=== PATIENT | male | born 1935 | race African-American/Black ===

== ENCOUNTER 2019-06-06 11:07 | Emergency (ER) | payer OTHER ==
[~2019-06-06] VITALS: Ht 170.2 cm; Wt 77.0 kg
[~2019-06-06 11:07] MED LIST: AMLO10TA4 PO; DONE10TA11 PO; FINA1TAB18 PO; MEGE40TA27 GT; TAMS-11 PO
[2019-06-06 14:21] LABS: BASOPHILS % 0.9 % (0.0-2.0); EOSINOPHILS % 6.3 % (0.0-5.0); HEMATOCRIT. 34.5 % (42.0-52.0); HEMOGLOBIN. 11.8 g/dL (14.0-18.0); LYMPHOCYTES % 13.5 % (20.0-50.0); MEAN CORPUSCULAR HEMOGLOBIN 30.3 pg (28.0-32.0); MEAN CORPUSCULAR VOLUME 88.1 fL (80.0-94.0); MONOCYTES % 10.2 % (2.0-8.0); NEUTROPHILS % 69.1 % (40.0-76.0); PLATELET 281 x1000/uL (130-400); RED BLOOD CELL COUNT 3.91 mill/uL (4.7-6.1); RED CELL DISTRIBUTION WIDTH 13.6 % (11.6-14.6)
[2019-06-06 14:26] LABS: CHLORIDE 106 mEq/L (98-107)
[2019-06-06 14:30] LABS: ETHANOL BLOOD < 10 mg/dL
[2019-06-06 16:29] LABS: CLARITY URINE CLEAR (CLEAR); COLOR URINE YELLOW (YELLOW); KETONES URINE NEGATIVE (NEGATIVE); LEUKOCYTE ESTERASE URINE NEGATIVE (NEGATIVE); NITRITE URINE NEGATIVE (NEGATIVE); OCCULT BLOOD URINE TRACE (NEGATIVE); PROTEIN URINE NEGATIVE (NEGATIVE); SPECIFIC GRAVITY URINE 1.017 (1.005-1.030); UROBILINOGEN URINE 0.2 E.U./dL (0.2-1.0)
[2019-06-06 16:43] LABS: *AMPHETAMINES SCREEN URINE NEGATIVE (NEGATIVE); *BARBITURATES SCREEN URINE NEGATIVE (NEGATIVE); *BENZODIAZEPINES SCREEN URINE NEGATIVE (NEGATIVE)
[2019-06-06 16:44] LABS: *COCAINE SCREEN URINE NEGATIVE (NEGATIVE); CANNABINOID URINE SCREEN NEGATIVE (NEGATIVE); METHADONE URINE SCREEN NEGATIVE (NEGATIVE); OPIATES URINE SCREEN NEGATIVE (NEGATIVE)
[2019-06-06 16:45] LABS: PHENCYCLIDINE URINE SCREEN NEGATIVE (NEGATIVE)
[2019-06-06 17:00] VITALS: BP 128/66
== END 2019-06-06 18:21 | disposition home or self-care (01) ==
LOC: ER 11:07
DX: G31.9 Degenerative disease of nervous system, unspecified (principal); R90.82 White matter disease, unspecified; I10 Essential (primary) hypertension; F03.90 Unspecified dementia, unspecified severity, without behavioral disturbance, psychotic disturbance, mood disturbance, and anxiety; Z95.0 Presence of cardiac pacemaker; Z79.899 Other long term (current) drug therapy
CPT/HCPCS: 36415; 71045; 80305; 80320; 82140; 82962; 84443; 84484; 93005; 99284; G0480

== ENCOUNTER 2019-08-17 18:55 | Emergency (ER) | payer OTHER ==
[~2019-08-17] VITALS: Ht 165.1 cm; Wt 70.0 kg
[2019-08-17] MEDS ORDERED: SODIUM CHLORIDE 0.9% 1,000 ML IV ONE (19:58)
[2019-08-17 20:17] LABS: EOSINOPHILS % 5.5 % (0.0-5.0); HEMATOCRIT. 35.9 % (42.0-52.0); HEMOGLOBIN. 11.9 g/dL (14.0-18.0); MEAN CORPUSCULAR HEMOGLOBIN 29.9 pg (28.0-32.0); MEAN CORPUSCULAR VOLUME 90.1 fL (80.0-94.0); MEAN PLATELET VOLUME 7.7 fl (7.4-10.4); MONOCYTES % 11.4 % (2.0-8.0); NEUTROPHILS % 65.1 % (40.0-76.0); PLATELET 172 x1000/uL (130-400); RED BLOOD CELL COUNT 3.98 mill/uL (4.7-6.1); RED CELL DISTRIBUTION WIDTH 13.6 % (11.6-14.6)
[2019-08-17 20:22] LABS: CHLORIDE 105 mEq/L (98-107)
[2019-08-17 20:26] LABS: INR 1.1; PARTIAL THROMBOPLASTIN TIME 31.4 sec (23.4-31.0); PROTHROMBIN TIME 10.9 sec (9.6-11.0)
[2019-08-17] MEDS ORDERED: ASPIRIN 325MG EC TABLET PO ONE (21:15)
[2019-08-17 22:00] LABS: CLARITY URINE CLEAR (CLEAR); COLOR URINE YELLOW (YELLOW); KETONES URINE TRACE (NEGATIVE); LEUKOCYTE ESTERASE URINE NEGATIVE (NEGATIVE); NITRITE URINE NEGATIVE (NEGATIVE); OCCULT BLOOD URINE 1+ (NEGATIVE); PROTEIN URINE TRACE (NEGATIVE); UROBILINOGEN URINE 0.2 E.U./dL (0.2-1.0)
[2019-08-17 23:22] VITALS: BP 137/60
== END 2019-08-17 23:35 | disposition short-term general hospital (02) ==
LOC: ER 18:55 → CANBEDREQ 08-18 01:06
DX: R41.82 Altered mental status, unspecified (principal); R47.81 Slurred speech; R26.81 Unsteadiness on feet; R41.0 Disorientation, unspecified; I10 Essential (primary) hypertension; Z79.899 Other long term (current) drug therapy; Z95.0 Presence of cardiac pacemaker; Z95.810 Presence of automatic (implantable) cardiac defibrillator
CPT/HCPCS: 36415; 70450; 71045; 80053; 81003; 83880; 84484; 85025; 85610; 85730; 87086; 93005; 96360; 99285; J7030

== ENCOUNTER 2019-12-14 05:10 | Emergency (ER) | payer OTHER ==
[~2019-12-14] VITALS: Ht 177.8 cm; Wt 73.0 kg
[2019-12-14 07:24] LABS: BASOPHILS % 1.3 % (0.0-2.0); EOSINOPHILS % 3.2 % (0.0-5.0); HEMATOCRIT. 37.5 % (42.0-52.0); HEMOGLOBIN. 12.5 g/dL (14.0-18.0); LYMPHOCYTES % 20.4 % (20.0-50.0); MEAN CORPUSCULAR HEMOGLOBIN 29.9 pg (28.0-32.0); MEAN CORPUSCULAR VOLUME 89.2 fL (80.0-94.0); MEAN PLATELET VOLUME 7.9 fl (7.4-10.4); MONOCYTES % 10.9 % (2.0-8.0); NEUTROPHILS % 64.2 % (40.0-76.0); PLATELET 192 x1000/uL (130-400); RED CELL DISTRIBUTION WIDTH 13.2 % (11.6-14.6)
[2019-12-14 07:26] LABS: CHLORIDE 109 mEq/L (98-107)
[2019-12-14 08:39] LABS: INR 1.1; PROTHROMBIN TIME 11.1 sec (9.6-11.0)
[2019-12-14 09:26] VITALS: BP 136/56
== END 2019-12-14 09:28 | disposition short-term general hospital (02) ==
LOC: ER 05:10 → CANBEDREQ 16:45
DX: R07.89 Other chest pain (principal); M54.6 Pain in thoracic spine; E11.9 Type 2 diabetes mellitus without complications; I10 Essential (primary) hypertension; I25.110 Atherosclerotic heart disease of native coronary artery with unstable angina pectoris; F03.90 Unspecified dementia, unspecified severity, without behavioral disturbance, psychotic disturbance, mood disturbance, and anxiety; Z87.891 Personal history of nicotine dependence; Z95.0 Presence of cardiac pacemaker; Z79.899 Other long term (current) drug therapy
CPT/HCPCS: 36415; 71045; 80053; 82962; 84484; 85025; 93005; 99285

== ENCOUNTER 2020-10-20 01:35 | Emergency (ER) | payer OTHER ==
[~2020-10-20] VITALS: Ht 170.2 cm; Wt 90.0 kg
[~2020-10-20 01:35] MED LIST changes: -MEGE40TA27 GT; +MEGE40TA5 GT
[2020-10-20 03:59] LABS: HEMATOCRIT. 36.2 % (42.0-52.0); HEMOGLOBIN. 12.1 g/dL (14.0-18.0); MEAN CORPUSCULAR HEMOGLOBIN 30.1 pg (28.0-32.0); MEAN CORPUSCULAR VOLUME 90.4 fL (80.0-94.0); RED BLOOD CELL COUNT 4.01 mill/uL (4.7-6.1); RED CELL DISTRIBUTION WIDTH 13.2 % (11.6-14.6)
[2020-10-20 04:07] LABS: CHLORIDE 106 mEq/L (98-107)
[2020-10-20 04:13] LABS: ETHANOL BLOOD < 10 mg/dL
[2020-10-20 04:41] LABS: CLARITY URINE CLEAR (CLEAR); COLOR URINE YELLOW (YELLOW); KETONES URINE NEGATIVE (NEGATIVE); LEUKOCYTE ESTERASE URINE NEGATIVE (NEGATIVE); NITRITE URINE NEGATIVE (NEGATIVE); OCCULT BLOOD URINE NEGATIVE (NEGATIVE); PH URINE 6.5 (4.5-8.0); PROTEIN URINE NEGATIVE (NEGATIVE); SPECIFIC GRAVITY URINE 1.019 (1.005-1.030)
[2020-10-20 04:53] LABS: *AMPHETAMINES SCREEN URINE NEGATIVE (NEGATIVE); *BARBITURATES SCREEN URINE NEGATIVE (NEGATIVE); *BENZODIAZEPINES SCREEN URINE NEGATIVE (NEGATIVE)
[2020-10-20 04:54] LABS: *COCAINE SCREEN URINE NEGATIVE (NEGATIVE); CANNABINOID URINE SCREEN NEGATIVE (NEGATIVE); METHADONE URINE SCREEN NEGATIVE (NEGATIVE); OPIATES URINE SCREEN NEGATIVE (NEGATIVE); PHENCYCLIDINE URINE SCREEN NEGATIVE (NEGATIVE)
[2020-10-20 05:24] LABS: MEAN PLATELET VOLUME 9.7 fl (7.4-10.4); PLATELET 270 x1000/uL (130-400)
[2020-10-20 05:34] LABS: PLATELET ESTIMATE NORMAL
[2020-10-20] MEDS ORDERED: ACETAMINOPHEN 325MG TABLET PO PRN ×2 (08:15)
[2020-10-20] MEDS ORDERED: NITROGLYCERIN 0.4MG TABLET SL SL PRN (08:15)
[2020-10-20] MEDS ORDERED: ONDANSETRON HCL 4MG/2ML INJ IV PRN (08:15)
[2020-10-20] MEDS ORDERED: DOCUSATE SODIUM 100MG CAPSULE PO PRN (08:15)
[2020-10-20] MEDS ORDERED: GUAIFENESIN 200MG/10ML SUGAR FREE UDC PO PRN (08:15)
[2020-10-20] MEDS ORDERED: IPRATROPIUM/ALBUTEROL 0.5-3(2.5)MG/3ML NEB NEB PRN (08:15)
[2020-10-20] MEDS ORDERED: MAGNESIUM/ALUMINUM HYDROXIDE/SIMETHICONE 30ML UDC PO PRN (08:15)
[2020-10-20] MEDS ORDERED: CLONIDINE 0.1MG TABLET PO PRN (08:15)
[2020-10-20] MEDS ORDERED: ASCORBIC ACID 500 MG TABLET PO SCH (09:00)
[2020-10-20] MEDS ORDERED: ZINC SULFATE 220 MG ( 50 ) CAPSULE PO SCH (09:00)
[2020-10-20] MEDS ORDERED: TAMSULOSIN HCL 0.4MG SR CAPSULE PO SCH (09:00)
[2020-10-20] MEDS ORDERED: FAMOTIDINE 20MG TABLET PO SCH (09:00)
[2020-10-20] MEDS ORDERED: ASPIRIN 325MG EC TABLET PO SCH (09:00)
[2020-10-20] MEDS ORDERED: ENOXAPARIN 40MG/0.4ML SYR SUBCUT SCH (09:15)
[2020-10-20 10:09] LABS: FOLIC ACID (FOLATE) SERUM >20 ng/mL ng/mL (>5.38)
[2020-10-20 10:21] LABS: VITAMIN B12 SERUM 1724 pg/mL (211-911)
[2020-10-20 19:00] VITALS: BP 135/73
[2020-10-20] MEDS ORDERED: ZOLPIDEM TARTRATE 5MG TABLET PO PRN (21:00)
== END 2020-10-20 19:15 | disposition left against medical advice (07) ==
LOC: ER 01:35 → CANBEDREQ 10-21 10:55
DX: R41.82 Altered mental status, unspecified (principal); I25.10 Atherosclerotic heart disease of native coronary artery without angina pectoris; I25.2 Old myocardial infarction; I10 Essential (primary) hypertension; E11.9 Type 2 diabetes mellitus without complications
CPT/HCPCS: 36415; 70450; 71045; 80053; 80061; 80305; 80307; 80320; 80329; 81003; 82140; 82607; 82746; 82962; 83036; 83540; 83550; 83605; 83690; 84443; 84484; 85025; 86850; 86900; 86901; 93005; 93970; 96372; 99285; J1650; G0480

== ENCOUNTER 2021-03-26 20:58 | Emergency (ER) | payer OTHER ==
[~2021-03-26] VITALS: Ht 177.8 cm; Wt 77.0 kg
[2021-03-26] MEDS ORDERED: SODIUM CHLORIDE 0.9% 1000ML BAG (SEPSIS BOLUS) IV ONE (22:15)
[2021-03-26 23:03] LABS: BASOPHILS % 0.6 % (0.0-2.0); EOSINOPHILS % 1.6 % (0.0-5.0); HEMATOCRIT. 34.8 % (42.0-52.0); HEMOGLOBIN. 11.8 g/dL (14.0-18.0); MEAN CORPUSCULAR HEMOGLOBIN 30.9 pg (28.0-32.0); MEAN CORPUSCULAR VOLUME 90.7 fL (80.0-94.0); MEAN PLATELET VOLUME 8.2 fl (7.4-10.4); MONOCYTES % 5.6 % (2.0-8.0); NEUTROPHILS % 83.2 % (40.0-76.0); PLATELET 165 x1000/uL (130-400); RED BLOOD CELL COUNT 3.84 mill/uL (4.7-6.1); RED CELL DISTRIBUTION WIDTH 13.2 % (11.6-14.6)
[2021-03-26 23:09] LABS: CHLORIDE 109 mEq/L (98-107)
[2021-03-26 23:15] LABS: INR 1.2; PARTIAL THROMBOPLASTIN TIME 24.9 sec (23.4-31.0); PROTHROMBIN TIME 12.3 sec (9.6-11.0)
[2021-03-27] MEDS ORDERED: ASPIRIN 325MG EC TABLET PO ONE (00:45)
[2021-03-27] MEDS ORDERED: IOHEXOL-350 100 ML BOTTLE ONE (02:12)
[2021-03-27 06:11] VITALS: BP 140/70
== END 2021-03-27 06:52 | disposition short-term general hospital (02) ==
LOC: ER 20:58
DX: R07.89 Other chest pain (principal); R55 Syncope and collapse; R41.82 Altered mental status, unspecified; Z95.0 Presence of cardiac pacemaker; Z79.899 Other long term (current) drug therapy; Z20.822 Contact with and (suspected) exposure to COVID-19
CPT/HCPCS: 36415; 70450; 71045; 71275; 80053; 83605; 83880; 84145; 84484; 85025; 85379; 85610; 85730; 87040; 87426; 93005; 96360; 96361; 99285; J7030; Q9967

== ENCOUNTER 2022-09-18 02:11 | Inpatient (IN) | payer MEDICARE, OTHER ==
[~2022-09-18] VITALS: Ht 170.2 cm; Wt 49.0 kg
[~2022-09-18 02:11] MED LIST changes: +MIRT7.5T11 PO; +TRAZ-251 PO
[2022-09-18] MEDS ORDERED: METHYLPREDNISOLONE SOD SUCC 125 MG/2 ML VIAL IV STA (02:40)
[2022-09-18] MEDS ORDERED: ALBUTEROL (0.083%) 2.5MG/3ML NEB HHN STA (02:40)
[2022-09-18] MEDS ORDERED: IPRATROPIUM BROMIDE (0.02%) 0.5MG/2.5ML NEB HHN STA (02:40)
[2022-09-18] MEDS ORDERED: SODIUM CHLORIDE 0.9% 1000ML BAG (SEPSIS BOLUS) IV ONE (03:00)
[2022-09-18] MEDS: ACETAMINOPHEN 325MG TABLET PO STA ×2 (03:00→04:38)
[2022-09-18] MEDS ORDERED: AZITHROMYCIN 500MG/250ML 250 ML IV ONE (03:00)
[2022-09-18] MEDS ORDERED: CEFTRIAXONE 1 G PREMIX 50 ML IV ONE (03:00)
[2022-09-18] MEDS ORDERED: ACETAMINOPHEN 650MG SUPP PR STA (03:23)
[2022-09-18 03:31] LABS: HEMATOCRIT. 38.8 % (42.0-52.0); HEMOGLOBIN. 13.4 g/dL (14.0-18.0); MEAN CORPUSCULAR HEMOGLOBIN 31.1 pg (28.0-32.0); MEAN PLATELET VOLUME 7.7 fl (7.4-10.4); PLATELET 300 x1000/uL (130-400); RED BLOOD CELL COUNT 4.31 mill/uL (4.7-6.1)
[2022-09-18 03:41] LABS: CHLORIDE 100 mEq/L (98-107)
[2022-09-18 04:04] LABS: BG BASE EXCESS 1.9 mmol/L (-2.0-2.0); BG CARBOXYHEMOGLOBIN 0.3 % (0.5-1.5); BG FRACTION INSPIRED OXYGEN 32; BG HCO3 ACT 24.2 mmol/L (22.0-26.0); BG METHEMOGLOBIN 0.3 % (0.0-1.5); BG OXYHEMOGLOBIN 97.4 % (94.0-97.0); BG PCO2 30.4 mmHg (35.0-45.0); BG PH 7.518 (7.350-7.450); BG PO2 107.7 mmHg (75.0-100.0); BG TOTAL HEMOGLOBIN 12.3 g/dL (12.0-18.0); BG VENT MODE NASAL CANNULA
[2022-09-18 04:37] LABS: PLATELET ESTIMATE NORMAL
[2022-09-18] MEDS ORDERED: ACETAMINOPHEN 325MG TABLET PO PRN ×2 (09:15)
[2022-09-18] MEDS ORDERED: IPRATROPIUM/ALBUTEROL 0.5-3(2.5)MG/3ML NEB NEB PRN (09:15)
[2022-09-18] MEDS ORDERED: DOCUSATE SODIUM 100MG CAPSULE PO PRN (09:15)
[2022-09-18] MEDS ORDERED: HYDROCODONE/ACETAMINOPHEN 5/325MG TABLET PO PRN (09:15)
[2022-09-18] MEDS ORDERED: GUAIFENESIN 200MG/10ML SUGAR FREE UDC PO PRN (09:15)
[2022-09-18] MEDS ORDERED: CLONIDINE 0.1MG TABLET PO PRN (09:15)
[2022-09-18] MEDS ORDERED: ONDANSETRON HCL 4MG/2ML INJ IV PRN (09:15)
[2022-09-18] MEDS ORDERED: MAGNESIUM/ALUMINUM HYDROXIDE/SIMETHICONE 30ML UDC PO PRN (09:15)
[2022-09-18 09:50] VITALS: BP 107/38
[2022-09-18 12:00] VITALS: BP 105/60
[2022-09-18] MEDS ORDERED: LATA2.5D14 EACHEYE (14:57)
[2022-09-18] MEDS ORDERED: CALC-1042 PO (14:57)
[2022-09-18] MEDS ORDERED: MIRT-89 PO (14:57)
[2022-09-18] MEDS ORDERED: ATOR40TA70 MT (14:57)
[2022-09-18] MEDS ORDERED: FINA1TAB18 MT (14:57)
[2022-09-18] MEDS ORDERED: ASPI-1497 PO (14:57)
[2022-09-18] MEDS ORDERED: TOPUD PO (14:57)
[2022-09-18] MEDS ORDERED: PANT20TA17 MT (14:57)
[2022-09-18] MEDS: ENOXAPARIN 40MG/0.4ML SYR SUBCUT SCH (15:17)
[2022-09-18 16:00] VITALS: BP 103/50
[2022-09-18 20:00] VITALS: BP 137/61
[2022-09-18] MEDS: MIRTAZAPINE 15MG TABLET PO SCH (21:18)
[2022-09-19] VITALS: BP 153/62
[2022-09-19] MEDS: IPRATROPIUM/ALBUTEROL 0.5-3(2.5)MG/3ML NEB HHN SCH ×4 (00:32→21:40)
[2022-09-19 03:51] LABS: CREATINE KINASE MB FRACTION 34.5 ng/mL (0.5-3.6)
[2022-09-19 04:00] VITALS: BP 143/59
[2022-09-19 07:01] LABS: BASOPHILS % 0.5 % (0.0-2.0); EOSINOPHILS % 0.2 % (0.0-5.0); HEMATOCRIT. 34.3 % (42.0-52.0); HEMOGLOBIN. 11.6 g/dL (14.0-18.0); LYMPHOCYTES % 11.2 % (20.0-50.0); MEAN CORPUSCULAR HEMOGLOBIN 30.9 pg (28.0-32.0); MEAN CORPUSCULAR VOLUME 91.3 fL (80.0-94.0); MEAN PLATELET VOLUME 8.2 fl (7.4-10.4); NEUTROPHILS % 76.1 % (40.0-76.0); PLATELET 253 x1000/uL (130-400); RED BLOOD CELL COUNT 3.76 mill/uL (4.7-6.1); RED CELL DISTRIBUTION WIDTH 13.1 % (11.6-14.6)
[2022-09-19 07:34] LABS: PHOSPHORUS 3.2 mg/dL (2.5-4.9); T4 FREE 1.14 ng/dL (0.76-1.46)
[2022-09-19 07:39] LABS: VITAMIN B12 SERUM 1022 pg/mL (211-911)
[2022-09-19 07:51] VITALS: BP 119/84
[2022-09-19 08:01] LABS: CHLORIDE 106 mEq/L (98-107)
[2022-09-19] MEDS: ENOXAPARIN 40MG/0.4ML SYR SUBCUT SCH ×2 (10:51→21:48)
[2022-09-19 12:00] VITALS: BP 141/48
[2022-09-19] MEDS: PREDNISONE 20MG TABLET PO SCH (14:26)
[2022-09-19 15:07] LABS: CLARITY URINE CLEAR (CLEAR); COLOR URINE YELLOW (YELLOW); KETONES URINE NEGATIVE (NEGATIVE); LEUKOCYTE ESTERASE URINE TRACE (NEGATIVE); NITRITE URINE NEGATIVE (NEGATIVE); OCCULT BLOOD URINE NEGATIVE (NEGATIVE); PH URINE 5.5 (4.5-8.0); PROTEIN URINE NEGATIVE (NEGATIVE); SPECIFIC GRAVITY URINE 1.014 (1.005-1.030); UROBILINOGEN URINE 0.2 E.U./dL (0.2-1.0)
[2022-09-19 16:00] VITALS: BP 139/61
[2022-09-19] MEDS ORDERED: NALOXONE HCL 0.4MG/ML VIAL IV PRN (18:00)
[2022-09-19] MEDS: ASPIRIN 81MG EC TABLET PO SCH (18:08)
[2022-09-19] MEDS: ISOSORBIDE MONONITRATE 30MG TABLET SR 24HR PO SCH (18:08)
[2022-09-19] MEDS: CLOPIDOGREL 75MG TABLET PO SCH (18:08)
[2022-09-19 20:00] VITALS: BP 99/42
[2022-09-19] MEDS: MIRTAZAPINE 15MG TABLET PO SCH (21:40)
[2022-09-19] MEDS: ATORVASTATIN CALCIUM 40MG TABLET PO SCH (21:40)
[2022-09-20] VITALS: BP 120/60
[2022-09-20] MEDS: IPRATROPIUM/ALBUTEROL 0.5-3(2.5)MG/3ML NEB HHN SCH ×4 (01:40→21:35)
[2022-09-20 04:00] VITALS: BP 108/51
[2022-09-20 05:57] LABS: HEMATOCRIT. 30.7 % (42.0-52.0); HEMOGLOBIN. 10.3 g/dL (14.0-18.0); MEAN CORPUSCULAR HEMOGLOBIN 31.2 pg (28.0-32.0); MEAN CORPUSCULAR VOLUME 92.7 fL (80.0-94.0); MEAN PLATELET VOLUME 8.1 fl (7.4-10.4); PLATELET 205 x1000/uL (130-400); RED BLOOD CELL COUNT 3.32 mill/uL (4.7-6.1); RED CELL DISTRIBUTION WIDTH 13.2 % (11.6-14.6)
[2022-09-20 07:08] LABS: CHLORIDE 108 mEq/L (98-107)
[2022-09-20 08:00] VITALS: BP 117/62
[2022-09-20] MEDS: ISOSORBIDE MONONITRATE 30MG TABLET SR 24HR PO SCH (08:13)
[2022-09-20] MEDS: ENOXAPARIN 40MG/0.4ML SYR SUBCUT SCH ×2 (08:13→21:10)
[2022-09-20] MEDS: PREDNISONE 20MG TABLET PO SCH (08:14)
[2022-09-20] MEDS: CLOPIDOGREL 75MG TABLET PO SCH (08:14)
[2022-09-20] MEDS: ASPIRIN 81MG EC TABLET PO SCH (08:14)
[2022-09-20 12:00] VITALS: BP 130/66
[2022-09-20] MEDS ORDERED: CLOP75TA15 PO ×2 (14:42)
[2022-09-20 16:00] VITALS: BP 96/51
[2022-09-20 20:00] VITALS: BP 121/59
[2022-09-20] MEDS: MIRTAZAPINE 15MG TABLET PO SCH (21:10)
[2022-09-20] MEDS: ATORVASTATIN CALCIUM 40MG TABLET PO SCH (21:10)
[2022-09-20 22:45] LABS: PLATELET ESTIMATE NORMAL
[2022-09-21] VITALS (7 sets, daily range): BP systolic 92–138; BP diastolic 47–74
[2022-09-21] MEDS: IPRATROPIUM/ALBUTEROL 0.5-3(2.5)MG/3ML NEB HHN SCH ×3 (01:50→13:42)
[2022-09-21] MEDS: ASPIRIN 81MG EC TABLET PO SCH (10:51)
[2022-09-21] MEDS: ENOXAPARIN 40MG/0.4ML SYR SUBCUT SCH ×2 (10:51→21:00)
[2022-09-21] MEDS: ISOSORBIDE MONONITRATE 30MG TABLET SR 24HR PO SCH (10:52)
[2022-09-21] MEDS: CLOPIDOGREL 75MG TABLET PO SCH (10:53)
[2022-09-21] MEDS: PREDNISONE 20MG TABLET PO SCH (10:53)
[2022-09-21] MEDS: MIRTAZAPINE 15MG TABLET PO SCH (21:00)
[2022-09-21] MEDS: ATORVASTATIN CALCIUM 40MG TABLET PO SCH (21:00)
[2022-09-21] MEDS ORDERED: CLOP75TA15 PO (21:37)
== END 2022-09-21 21:10 | disposition home or self-care (01) | DRG 280 ==
LOC: ER 02:27 → 8WST 07:06 → SUPCPDRO 08:15 → ENRESERV 08:34 → 8WST 10:08
PROVIDERS: ADMIT Internal Medicine; ATTEND Internal Medicine
DX: I21.4 Non-ST elevation (NSTEMI) myocardial infarction (principal); J96.01 Acute respiratory failure with hypoxia; J44.1 Chronic obstructive pulmonary disease with (acute) exacerbation; I10 Essential (primary) hypertension; E78.00 Pure hypercholesterolemia, unspecified; I48.91 Unspecified atrial fibrillation; E78.5 Hyperlipidemia, unspecified; I25.10 Atherosclerotic heart disease of native coronary artery without angina pectoris; F03.90 Unspecified dementia, unspecified severity, without behavioral disturbance, psychotic disturbance, mood disturbance, and anxiety; Z95.0 Presence of cardiac pacemaker; Z79.899 Other long term (current) drug therapy; Z86.73 Personal history of transient ischemic attack (TIA), and cerebral infarction without residual deficits
CPT/HCPCS: 36415; 36600; 71045; 73501; 80048; 80053; 81003; 82375; 82550; 82553; 82607; 82805; 83605; 83735; 83880; 84100; 84145; 84439; 84443; 84484; 85025; 87426; 93005; 93306; 99291; C9803; J0456; J0696; J1650; J2930; J7030; J7512; A4315

== ENCOUNTER 2022-09-21 22:25 | Emergency (ER) | payer OTHER ==
[~2022-09-21] VITALS: Ht 177.8 cm; Wt 68.0 kg
[~2022-09-21 22:25] MED LIST changes: +ASPI-1497 PO; +ATOR40TA70 MT; +CALC-1042 PO; +CLOP75TA15 PO; +FINA1TAB18 MT; +LATA2.5D14 EACHEYE; +MIRT-89 PO; +PANT20TA17 MT; +TOPUD PO
[2022-09-21 22:35] VITALS: BP 103/74
== END 2022-09-21 23:37 | disposition home or self-care (01) ==
LOC: ER 22:25
DX: T83.028A Displacement of other urinary catheter, initial encounter (principal); N40.0 Benign prostatic hyperplasia without lower urinary tract symptoms; E78.00 Pure hypercholesterolemia, unspecified; I25.2 Old myocardial infarction; I11.9 Hypertensive heart disease without heart failure; F03.90 Unspecified dementia, unspecified severity, without behavioral disturbance, psychotic disturbance, mood disturbance, and anxiety; I48.91 Unspecified atrial fibrillation; Z86.73 Personal history of transient ischemic attack (TIA), and cerebral infarction without residual deficits; Z79.01 Long term (current) use of anticoagulants; Y84.6 Urinary catheterization as the cause of abnormal reaction of the patient, or of later complication, without mention of misadventure at the time of the procedure; Y92.018 Other place in single-family (private) house as the place of occurrence of the external cause
CPT/HCPCS: 51702; 99284